=== PATIENT | female | born 1945 | race Caucasian/White ===

== ENCOUNTER 2020-12-04 06:05 | Day surgery (SDC) | payer OTHER ==
[2020-12-02 12:42] LABS: COVID AG,FIA SOURCE NASOPHARYNGEAL
[~2020-12-04] VITALS: Ht 149.9 cm; Wt 66.4 kg
[2020-12-04] MEDS ORDERED: LIDOCAINE 2% 30 ML JELLY TP ONE (06:06)
[2020-12-04] MEDS ORDERED: BENZOCAINE 20% 50 MCG/SPRAY 57 GM TP ONE (06:06)
[2020-12-04] MEDS ORDERED: ALBUTEROL SULFATE 2.5 MG/0.5 ML NEB SOLUTION NEB ONE (06:06)
[2020-12-04] MEDS ORDERED: SODIUM CHLORIDE 0.9% 1,000 ML IV ONE (06:30)
[2020-12-04] MEDS ORDERED: SODIUM CHLORIDE 0.9% 1,000 ML ONE (06:45)
[2020-12-04] MEDS ORDERED: ASPI-1450 PO (07:37)
[2020-12-04] MEDS ORDERED: HYDR25TA2 PO (07:37)
[2020-12-04] MEDS ORDERED: PRAV10TA39 PO (07:37)
[2020-12-04] MEDS ORDERED: METF-960 PO (07:37)
[2020-12-04] MEDS ORDERED: AMLO-258 PO (07:37)
[2020-12-04 07:40] LABS: GLUCOMETER DEV NAME(LOC) SDS.; GLUCOSE,POINT OF CARE 119 MG/DL (70-110)
[2020-12-04] MEDS ORDERED: FentaNYL CITRATE PF 100 MCG/2 ML VIAL ONE (07:40)
[2020-12-04] MEDS ORDERED: MIDAZOLAM HCL 5 MG/ML VIAL ONE (07:40)
[2020-12-04] MEDS ORDERED: MethylPREDNISolone SOD SUCC 125 MG/2 ML VIAL IVP ONE (09:00)
[2020-12-04] MEDS ORDERED: MethylPREDNISolone SOD SUCC 125 MG/2 ML VIAL ONE (09:47)
[2020-12-04] MEDS ORDERED: NALOXONE HCL 0.4 MG/ML VIAL IVP ONE (10:30)
[2020-12-04] MEDS ORDERED: FLUMAZENIL 0.1 MG/ML 5 ML VIAL IVP ONE (10:30)
[2020-12-04] MEDS ORDERED: OXYGEN THERAPY IH SCH (20:00)
== END 2020-12-04 10:55 | disposition home or self-care (01) ==
LOC: SURGERY 06:05
PROVIDERS: ATTEND Internal Medicine Critical Care Medicine
DX: R05 Cough (principal); R04.2 Hemoptysis; R91.1 Solitary pulmonary nodule; J34.89 Other specified disorders of nose and nasal sinuses; J84.9 Interstitial pulmonary disease, unspecified; J98.8 Other specified respiratory disorders; J38.4 Edema of larynx; B37.0 Candidal stomatitis; I10 Essential (primary) hypertension; E11.9 Type 2 diabetes mellitus without complications; I25.2 Old myocardial infarction; Z79.899 Other long term (current) drug therapy; Z79.84 Long term (current) use of oral hypoglycemic drugs; Z20.822 Contact with and (suspected) exposure to COVID-19
CPT/HCPCS: 31623; 31624; 71045; 82962; 87015; 87070; 87101; 87205; 87206; 87220; 87426; 88108; 88184; 88185; 88312; C9803; J2250; J2930; J3010; J7030; J7613